=== PATIENT | female | born 1980 | race Caucasian/White ===

== ENCOUNTER → 2020-10-14 | Outpatient (CLI) | payer OTHER ==
[2020-10-14 14:36] LABS: INR 0.95; PROTHROMBIN TIME 12.9 SECONDS (12.5-14.3)
[2020-10-14 14:37] LABS: PARTIAL THROMBOPLASTIN TIME 33.6 SECONDS (24.2-38.5)
[2020-10-14 15:04] LABS: BASO % 0.3 % (0.0-1.0); EOS # 0.1 10^3/uL (0.0-0.5); EOS % 0.9 % (0.0-3.0); HEMATOCRIT 45.8 % (36.0-47.0); HEMOGLOBIN 14.7 g/dl (12.0-15.5); LYMPH # 1.6 10^3/uL (1.5-5.0); LYMPH % 18.3 % (24.0-44.0); MEAN CORPUSCULAR HEMOGLOBIN 30.9 pg (27.0-33.0); MEAN CORPUSCULAR HGB CONC 32.1 g/dl (32.0-36.5); MEAN CORPUSCULAR VOLUME 96.4 fl (80.0-96.0); MONO # 0.7 10^3/uL (0.0-0.8); MONO % 7.2 % (2.0-8.0); NEUTROPHILS # 6.5 10^3/uL (1.5-8.5); NEUTROPHILS % 72.9 % (36.0-66.0); PLATELET COUNT, AUTOMATED 247 10^3/uL (150-450); RED BLOOD COUNT 4.75 10^6/uL (4.00-5.40)
== END ==
LOC: M PLALAB 10:40
PROVIDERS: ATTEND Internal Medicine Pulmonary Disease
DX: R91.8 Other nonspecific abnormal finding of lung field (principal)

== ENCOUNTER → 2020-11-07 | Outpatient (CLI) | payer OTHER ==
[~2020-11-07] MED LIST: AMOX500T2 PO; LIDOCAINE 1% MDV 20ML VIAL As Ordered ONE
[2020-11-07 08:09] VITALS: BP 105/67
--- NOTE | 2020-11-07 09:05 | REP ---
INDICATION: RT UPPER LOBE LUNG NODULE. COMPARISON: Comparison chest CT images are from October 08, 2020 performed at [facility].. TECHNIQUE: Patient was referred for CT-guided needle biopsy of a thick-walled cavitary lesion identified on recent CT in the right upper lobe. The patient was interviewed and informed consent was obtained by BRIAN Lomeli. Patient was taken to the CT suite for the anticipated CT guided needle biopsy. FINDINGS: However, the pre biopsy localizing CT images demonstrate that the cavitary lesion seen in the right upper lobe is markedly improved. Its wall is not quite thin per although there is some surrounding stranding. Current measurements are 2.1 cm x 1.3 cm in transverse dimension, previously 4.2 x 3.5 cm by my measurement. Given the dramatic improvement since the October 08, 2020 study, biopsy was deferred. IMPRESSION: Dramatically improved cavitary lesion right upper lobe consistent with a resolving lung abscess. Biopsy deferred. <Electronically signed by Ernesto Marin > 11/07/20 0901
== END ==
LOC: M IRPRO 08:05
PROVIDERS: ATTEND Internal Medicine Pulmonary Disease
DX: R91.8 Other nonspecific abnormal finding of lung field (principal); Z53.8 Procedure and treatment not carried out for other reasons